=== PATIENT | female | born 1990 | race Caucasian/White ===

== ENCOUNTER 2016-11-30 02:04 | Outpatient (CLI) | payer MEDICAID | END 2016-11-30 02:05 | disposition critical access hospital (66) | LOC: EMS 02:04 | PROVIDERS: ATTEND Surgery | DX: R10.9 Unspecified abdominal pain (principal); R11.2 Nausea with vomiting, unspecified | CPT/HCPCS: A0425; A0429 ==

== ENCOUNTER 2016-11-30 02:32 | Emergency (ER) | payer MEDICAID ==
[~2016-11-30 02:32] MED LIST: MORPHINE 10 MG/ML VIAL IVP STA; ONDANSETRON 4 MG/2 ML VIAL IVP STA; SODIUM CHLORIDE 0.9% 1,000 ML IV ONE
[2016-11-30] MEDS ORDERED: MORPHINE 10 MG/ML VIAL ONE (02:44)
[2016-11-30] MEDS ORDERED: ONDANSETRON 4 MG/2 ML VIAL ONE (02:45)
[2016-11-30 03:03] LABS: BASOPHILS % (AUTO) 0.4 %; EOSINOPHILS # (AUTO) 0.3 10^3/uL (0.0-0.7); EOSINOPHILS % (AUTO) 2.4 %; HCT - HEMATOCRIT 36.7 % (37.0-47.0); HGB - HEMOGLOBIN 12.3 g/dL (12.0-16.0); LYMPHOCYTES # (AUTO) 3.7 10^3/uL (1.5-3.5); LYMPHOCYTES % (AUTO) 30.9 %; MEAN CORPUSCULAR HEMOGLOBIN 29.1 pg (27.0-31.0); MEAN CORPUSCULAR HGB CONC 33.6 g/dL (32.0-36.0); MEAN CORPUSCULAR VOLUME 86.7 fL (81.0-99.0); MEAN PLATELET VOLUME 9.5 fL (7.9-10.8); MONOCYTES # (AUTO) 0.8 10^3/uL (0.0-1.0); MONOCYTES % (AUTO) 6.7 %; NEUTROPHILS # (AUTO) 7.2 10^3/uL (1.5-6.6); NEUTROPHILS % (AUTO) 59.6 %; RED BLOOD COUNT 4.23 10^6/uL (4.20-5.40); RED CELL DISTRIBUTION WIDTH 14.3 % (12.0-15.0)
[2016-11-30 03:04] LABS: ALBUMIN/GLOBULIN RATIO 1.1 (1.0-2.2); BILIRUBIN,TOTAL 0.6 mg/dL (0.2-1.0); CALCIUM 8.6 mg/dL (8.5-10.3); CREATININE 0.7 mg/dL (0.4-1.0); POTASSIUM 3.9 mmol/L (3.5-5.0)
[2016-11-30 03:30] LABS: BILIRUBIN,URINE NEGATIVE (NEGATIVE)
[2016-11-30 03:35] LABS: HCG UR QUAL NEGATIVE; UA w/ MICROSCOPIC CHARGE YES
[2016-11-30 03:53] LABS: UR CULTURE IF IND NOT INDICATED
--- NOTE | 2016-11-30 04:01 | Ultrasound Preliminary Report ---
Exam: US Abdomen Limited IMPRESSION: 1. Multiple tiny mobile stones in the gallbladder. 2. Gallbladder wall thickness and common duct caliber are normal. No cholecystitis identified. 3. Enlarged fatty liver. [facility] SITE ID: [id number]
--- NOTE | 2016-11-30 04:04 | Ultrasound Report ---
EXAM: ABDOMEN ULTRASOUND LIMITED, RUQ EXAM DATE: 11/30/2016 03:40 AM. CLINICAL HISTORY: Epigastric/Right upper quadrant pain. COMPARISON: None. TECHNIQUE: Real-time scanning was performed with static images obtained. FINDINGS: Liver: Enlarged and echogenic. 24.1 cm. Main portal vein flow: Hepatopetal. Gallbladder: Multiple tiny mobile stones in the gallbladder. Wall thickness is normal at 2.6 mm. No f ocal tenderness over the gallbladder. Biliary System: CBD measures 3.2 mm. No intrahepatic or extrahepatic ductal dilatation. Other: Right kidney measures 11.7 cm and appears normal. Visualized portions of the pancreas appear n ormal. Inferior vena cava is patent where seen. Aorta is unremarkable as imaged. IMPRESSION: 1. Multiple tiny mobile stones in the gallbladder. 2. Gallbladder wall thickness and common duct caliber are normal. No cholecystitis identified. 3. Enlarged fatty liver. [facility] Referring Provider Line: [phone] SITE ID: [id number]
--- NOTE | 2016-11-30 04:09 | ED Physician Documentation ---
PD HPI ABD PAIN - Stated complaint Stated Complaint: ABD PN - Chief complaint Chief Complaint: Abd Pain - History obtained from History obtained from: Family, Friend - History of Present Illness Timing - onset: Today Timing - details: Abrupt onset, Still present Quality: Sharp, Stabbing Location: RUQ Worsened by: Moving, Position, Palpation Associated symptoms: Nausea, Vomiting. No: Fever, Hematemesis, Diarrhea, Constipation Similar symptoms before: Has not had sx before Recently seen: Not recently seen - Additional information Additional information: Patient is a 26 year old female who is presenting to the emergency department for abdominal pain. Patient states that the pain tonight woke her up from sleep. the pain in in the right upper quadrant and epigastric region. patient did report having fast food for the first time today in a while. patient felt nauseated with the pain and had an episode of vomiting. family called ems. enroute patient was treated with 3 mg of morphine. Review of Systems Constitutional: denies: Fever, Chills Eyes: denies: Loss of vision Ears: denies: Ear pain, Drainage/discharge Nose: denies: Rhinorrhea / runny nose, Congestion Throat: denies: Sore throat Cardiac: denies: Chest pain / pressure GI: reports: Abdominal Pain, Nausea, Vomiting : denies: Dysuria, Frequency, Hesitancy Skin: denies: Rash, Lesions Neurologic: denies: Generalized weakness, Focal weakness Immunocompromised: denies: Immunocompromised PD PAST MEDICAL HISTORY - Past Medical History Past Medical History: No - Past Surgical History Past Surgical History: No - Present Medications Home Medications: Ambulatory Orders Medication Instructions Recorded Confirmed HYDROcod/ACETAM 5/325 [Vicodin 1 - 2 ea PO Q6H PRN #15 tablet 08/25/12 5/325] Methocarbamol [Robaxin-750] 750 mg PO Q6-8H PRN #20 tablet 08/25/12 Ondansetron Odt [Zofran] 4 mg TL Q6H PRN #14 tablet 11/30/16 Oxycodone HCl/Acetaminophen 1 - 2 each PO Q6H PRN #7 tablet 11/30/16 [Percocet 5-325 mg Tablet] - Allergies Allergies/Adverse Reactions: Allergies Allergy/AdvReac Type Severity Reaction Status Date / Time acetaminophen [From Vicodin] Allergy Severe Nausea Verified 08/25/12 00:40 hydrocodone bitartrate * Allergy Severe Nausea Verified 08/25/12 00:40 [From Vicodin] - Social History Does the pt smoke?: No Smoking Status: Never smoker Does the pt drink ETOH?: Yes Does the pt have substance abuse?: No - Immunizations Immunizations are current?: Yes - POLST Patient has POLST: No PD ED PE NORMAL - Vitals Vital signs reviewed: Yes - General General: Alert and oriented X 3, Well developed/nourished - HEENT HEENT: Atraumatic, PERRL, Moist mucous membranes - Cardiac Cardiac: RRR, No murmur - Respiratory Respiratory: No respiratory distress, Clear bilaterally - Derm Derm: Normal color, No rash - Extremities Extremities: No deformity - Neuro Neuro: Alert and oriented X 3, No motor deficit, No sensory deficit, Normal speech - Psych Psych: Normal mood, Normal affect PD ED PE EXPANDED - General General: Alert, In Pain - Abdomen Abdomen: Tender to palpation, RUQ, Epigastric, Other (obese). No: Rebound, Guarding, Surgical scars Results - Vitals Vitals: Vital Signs - 24 hr 11/30/16 11/30/16 02:22 03:18 Temperature 36.1 C L Heart Rate 97 75 Respiratory 20 15 Rate Blood Pressure 102/58 L 103/54 L O2 Saturation 100 97 Oxygen O2 Source Room air - Labs Labs: Laboratory Tests 11/30/16 11/30/16 11/30/16 02:47 02:47 03:10 WBC 12.0 H RBC 4.23 Hgb 12.3 Hct 36.7 L MCV 86.7 MCH 29.1 MCHC 33.6 RDW 14.3 Plt Count 206 MPV 9.5 Neut # 7.2 H Lymph # 3.7 H [place] # 0.8 Eos # 0.3 Baso # 0.0 Absolute Nucleated RBC 0.00 Nucleated RBCs 0.0 Sodium 140 Potassium 3.9 Chloride 106 Carbon Dioxide 25 Anion Gap 9.0 BUN 18 Creatinine 0.7 Estimated GFR (MDRD) 101 Glucose 112 H Calcium 8.6 Total Bilirubin 0.6 AST 45 H ALT 37 Alkaline Phosphatase 70 Total Protein 7.0 Albumin 3.7 Globulin 3.3 Albumin/Globulin Ratio 1.1 Lipase 24 Urine Color YELLOW Urine Clarity HAZY Urine pH 6.0 Ur Specific [place] 1.015 Urine Protein NEGATIVE Urine Glucose (UA) NEGATIVE Urine Ketones NEGATIVE Urine Occult Blood NEGATIVE Urine Nitrite NEGATIVE Urine Bilirubin NEGATIVE Urine Urobilinogen 0.2 (NORMAL) Ur Leukocyte Esterase TRACE H Urine RBC 0-5 Urine WBC 4-5 Ur Squamous Epith Cells MOD Squamous H Urine Bacteria None Seen Ur Microscopic Review INDICATED Urine Culture Comments NOT INDICATED Urine HCG, Qual NEGATIVE - Rads (name of study) abdom us Radiology: Final report received (multiple stones, normal wall thickness and cbd ) PD MEDICAL DECISION MAKING - ED course Complexity details: reviewed old records, reviewed results, re-evaluated patient , considered differential, d/w patient ED course: Patient was seen and examined at bedside. iv access was gained and labs were drawn. Patient was treated with morphine and zofran. imaging was ordered. Patient's finding were consistent with biliary colic but there were no signs of acute choleycystitis. Patient was given comprehensive discharge, and follow up instructions and was stable for discharge with outpatient follow up. Departure - Departure Disposition: Home, Self Care Clinical Impression: Cholelithiasis Condition: Good Instructions: ED Gallstone W Biliary Colic Follow-Up: Mac Figueroa MD [Provider Admit Priv/Credential] - Within 1 week (call to schedule a follow up appointment) Prescriptions: Oxycodone HCl/Acetaminophen [Percocet 5-325 mg Tablet] 1 - 2 each PO Q6H PRN #7 tablet PRN Reason: pain Ondansetron Odt [Zofran] 4 mg TL Q6H PRN #14 tablet PRN Reason: Nausea / Vomiting Comments: Your symptoms today are being caused by gallstones. the first step is to change your diet. You will need to decrease the amount of fried and fatty foods. You should try to cut out fast foods. you can take motrin or tylenol as needed for pain, and an occasional percocet for breakthrough pain. You should call dr. Figueroa's office to schedule outpatient follow up for possible surgery if your symptoms become more frequent. You should return to the emergency department at any time for new, worsening or uncontrollable symptoms.
[2016-11-30] MEDS ORDERED: oxyCODONE/ACET 5/325 Prepack 4 PO STA (04:13)
[2016-11-30] MEDS ORDERED: ONDANSETRON ODT 4 MG TABLET TL STA (04:16)
[2016-11-30] MEDS ORDERED: oxyCODONE/ACET 5/325 Prepack 4 PO ONE (04:22)
[2016-11-30] MEDS ORDERED: ONDANSETRON ODT 4 MG TABLET ONE (04:22)
[2016-11-30 04:48] VITALS: BP 99/55
== END 2016-11-30 04:47 | disposition home or self-care (01) ==
LOC: EDUNIT# → ED 02:32
DX: K80.20 Calculus of gallbladder without cholecystitis without obstruction (principal)
CPT/HCPCS: 36415; 76705; 80053; 81001; 81025; 83690; 85025; 96374; 96375; 99284; Q0162; 81003; 87086